=== PATIENT | female | born 1965 | race Caucasian/White ===

== ENCOUNTER 2018-07-25 13:06 | Emergency (ER) | payer OTHER ==
--- NOTE | 2018-07-25 14:10 | EDPHY ---
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 While driving this patient describes onset of substernal chest pain described as squeezing sensation associated with difficulty swallowing, anxiety and dyspnea. She reported associated neck and jaw discomfort in addition and reports that the symptoms lasted for approximately 30 min prior to resolving upon arrival here. She reports ongoing dyspnea that feels like she "can't quite get a full breath". She denies any other ongoing symptoms at this time. Currently no chest pain or jaw pain. She is accompanied by 2 friends 1 of whom drove her here by private vehicle for evaluation. She reports increased work stress recently but had no other significant antecedent symptoms prior to the onset of the discomfort. She does not recall having any similar episodes in the past. ROS: Constitutional: No fevers or chills recently no significant fatigue. HEENT: No URI symptoms recently. Pulmonary: No cough. Ongoing mild dyspnea that she has noticed over the past few days. She notices this at rest primarily. She has still been able tolerate significant exertion-skate skiing but felt a little more dyspneic than usual with this activity. GI: No GERD symptoms were noted prior to the onset of the chest discomfort. She denies any belly pain. Normal bowel movements. No nausea or vomiting. Endocrine: She denies any acute symptoms Neuro: No focal numbness tingling weakness. Psychiatric: She admits increased work stress recently in insomnia last night. 10 point review of symptoms is performed and otherwise negative with exception of pertinent positives and negatives listed in HPI and ROS Source: Patient Exam Limitations: No limitations - Personal History LMP (Females 10-55): Post Menopausal - Medical/Surgical History PMH: GERD-patient's impression is that this resolved after she stopped eating gluten. Hx Asthma: No Hx Chronic Respiratory Disease: No Hx Diabetes: No Hx Cardiac Disease: No Hx Renal Disease: No Hx Cirrhosis: No Hx Alcoholism: No Hx HIV/AIDS: No Hx Splenectomy or Spleen Trauma: No Other PMH: PMH: hyperthyroidism. PSH: tooth extraction 1 week ago - Family History Significant Family History: No pertinent family hx. No: Asthma, Heart disease, Vascular disease - Social History Smoking Status: Never smoked Alcohol Use: Occasionally (Patient is a social drinker. 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 Eyes: Pupils equal and round no pallor or injection. ENT, Mouth: Mucous membranes moist. Respiratory: There are no retractions, lungs are clear to auscultation. Cardiovascular: Regular rate and rhythm. No murmur gallop rub. No JVD or peripheral edema. No calf swelling or tenderness. Gastrointestinal: Abdomen is soft and nontender, no masses, bowel sounds normal. Neurological: GCS 15 Skin: Warm and dry, no rashes. Musculoskeletal: Neck is supple nontender. Extremities are symmetrical, full range of motion. Psychiatric: Anxious. Mood and affect are otherwise normal DIFFERENTIAL DIAGNOSIS: After history and physical exam differential diagnosis was considered for GERD with esophageal spasm, pulmonary embolism, pneumothorax , pneumonia, musculoskeletal pain, anxiety with somatization Constitutional: Initial Vital Signs Temperature (C) 37.1 C 07/25/18 13:16 Heart Rate 67 07/25/18 13:16 Respiratory Rate 18 07/25/18 13:16 Blood Pressure 122/69 H 07/25/18 13:16 O2 Sat (%) 100 07/25/18 13:16 O2 Delivery Mode Room Air Allergies/Adverse Reactions: No Known Allergies Allergy (Unverified 07/25/18 13:15) Home Medications: Medication Instructions Recorded Albuterol Hfa Anes Only [Proair 2 puffs IH Q4 PRN #1 mdi 07/25/18 Hfa Icu (*)] Fluticasone Hfa 220 Mcg [Flovent 2 puffs IH DAILY #1 mdi 07/25/18 220 MCG Hfa MDI (*)] Hyoscyamine Sulfate [Levsin, 0.125 - 0.25 mg SL Q6 PRN #20 tab 07/25/18 Hyomax-Sl 0.125 mg (*)] Pantoprazole Sodium [Protonix 40mg 40 mg PO DAILY #30 tab 07/25/18 (RX)] Medical Decision Making - Diagnostics EKG Interpretation: 12 lead EKG performed shortly after arrival at 1:18 p.m. Reveals sinus rhythm at 65 Intervals: Normal throughout [place]: Normal throughout ST segments: Normal throughout Overall assessment: Normal EKG Imaging Results: Two view chest x-ray: No focal infiltrates other significant abnormalities beyond mild bronchial prominence by my interpretation. Imaging: I viewed and interpreted images myself ED Course/Re-evaluation: IV, monitor, patient remained pain-free while here with sought some ongoing dyspnea and anxiety. She declined benzodiazepines for anxiety and initially declines treatment for potential GERD, but later accepted a dose of Maalox and Levsin after further conversation for potential GERD. Discussion: Patient presents with history of exercise-induced asthma and GERD with chest pain at rest that resolved prior to my evaluation with some ongoing dyspnea and a diminished peak flow of 400 with predicted of 470 or so. She has bronchial inflammation on chest x-ray. Potential etiology for symptoms could be GERD with no time aspiration and inflammatory bronchitis. However explained in some detail that we cannot entirely rule out cardiopulmonary cause of her symptoms and 1 visit. Her heart score is 2. She signed the heart score document declining a 6 hr troponin or admission understanding approximately 1% chance of significant cardiac disease causing symptoms despite are negative workup today and will undergo outpatient workup. At the time of discharge she is pain-free with plan to start Protonix, beta agonist inhaler and Flovent. She understands need to return emergency department should she develop any significant worsening symptoms despite treatment plan. - Data Points Medications Given: Discontinued Medications Al Hydroxide/Mg Hydroxide (Maalox Susp) 30 ml PO EDNOW ONE Stop: 07/25/18 14:54 Last Admin: 07/25/18 14:56 Dose: 30 ml Hyoscyamine Sulfate (Levsin, Hyomax-Sl) 0.125 mg PO EDNOW ONE Stop: 07/25/18 14:54 Last Admin: 07/25/18 14:56 Dose: 0.125 mg Levalbuterol (Xopenex 1.25mg Neb) 1.25 mg IH EDNOW ONE Stop: 07/25/18 15:09 Last Admin: 07/25/18 15:13 Dose: 1.25 mg Point of Care Test Results: CBC CBC Collection Date 07/25/18 CBC Collection Time 13:25 WBC 5.51 RBC 4.58 HGB 14.2 HCT 41.2 PLT 241 Neut # 2.84 Neut 51.5 LYMPH # 1.97 LYMPH 35.8 MCV 90.0 Chemistry 07/25/18 07/25/18 13:31 13:30 POC Sodium 141 mEq/L mEq/L (135-145) POC Potassium 3.9 mEq/L mEq/L (3.3-5.0) POC Chloride 106.0 mEq/L mEq/L (97-110) POC Total CO2 23 mEq/L mEq/L (22-31) POC BUN 19 mg/dL mg/dL (7-23) POC Creatinine 0.7 mg/dL mg/dL (0.6-1.0) POC Glucose 93 mg/dL mg/dL (70-100) POC Calcium 10.2 mg/dL mg/dL (8.5-10.4) POC Troponin I 0.00 ng/mL ng/mL (0.00-0.08) D-Dimer D-Dimer Collection Date 07/25/18 D-Dimer Collection Time 13:25 D-Dimer (ng/ml) 100 Departure - Departure Disposition: Home, Routine, Self-Care Clinical Impression: Chest pain, Dyspnea, GERD (gastroesophageal reflux disease), history of exercise induced asthma Condition: Good Instructions: Chest Pain (ED), Gastroesophageal Reflux Disease (ED) Additional Instructions: Diagnoses: 1. Chest pain 2. Dyspnea 3. History of exercise-induced asthma As we discussed the may be having some acid reflux causing some mild bronchial injury at night and/or a flare of your exercise-induced asthma causing your bronchial inflammation decreased peak flow. However we cannot entirely rule out a cardiac cause of chest pain 1 visit. Plan: Humidifier Flovent steroid inhaler Albuterol inhaler in addition if needed for cough wheeze or shortness of breath Protonix acid tom Use Maalox and Levsin in addition for acute symptoms if needed Follow up with primary care physician with Cardiology. Cardiology should contact you to facilitate close follow-up appointment. If not hear from them within the next 2 days, then call Dr. Junior saw office listed below to arrange follow-up appointment. Return emergency department for any significant worsening despite the treatment plan Referrals: Susan Martin MD [Primary Care Provider] - As per Instructions Jordi Pate MD [Medical Doctor] - As per Instructions Prescriptions: Albuterol Hfa Anes Only [Proair Hfa Icu (*)] 2 puffs IH Q4 PRN #1 mdi PRN Reason: Wheezing Fluticasone Hfa 220 Mcg [Flovent 220 MCG Hfa MDI (*)] 2 puffs IH DAILY #1 mdi Hyoscyamine Sulfate [Levsin, Hyomax-Sl 0.125 mg (*)] 0.125 - 0.25 mg SL Q6 PRN # 20 tab PRN Reason: abdominal cramping Pantoprazole Sodium [Protonix 40mg (RX)] 40 mg PO DAILY #30 tab
[2018-07-25] MEDS ORDERED: MAG HYDROX/AL HYDROX/SIMETH 30 ML UDCUP PO ONE (14:53)
[2018-07-25] MEDS ORDERED: HYOSCYAMINE SULFATE 0.125 MG TAB PO ONE (14:53)
[2018-07-25] MEDS ORDERED: LEVALBUTEROL 1.25 MG/3 ML DEYVIAL IH ONE (15:08)
[2018-07-25 15:57] VITALS: BP 121/74
--- NOTE | 2018-07-31 15:51 | CPEKG ---
Test Reason : OPEN Blood Pressure : / mmHG Vent. Rate : 065 BPM Atrial Rate : 065 BPM P-R Int : 183 ms QRS Dur : 101 ms QT Int : 414 ms P-R-T Axes : 079 039 052 degrees QTc Int : 431 ms Sinus rhythm Confirmed by Alen Turcios ([id number]) on 07/31/2018 3:51:21 PM Referred By: PHYSICIAN ED Confirmed By:Alen Turcios
== END 2018-07-25 15:35 | disposition home or self-care (01) ==
LOC: CED 13:06
DX: R07.9 Chest pain, unspecified (principal); R06.00 Dyspnea, unspecified; K21.9 Gastro-esophageal reflux disease without esophagitis; E03.9 Hypothyroidism, unspecified; Z87.09 Personal history of other diseases of the respiratory system
CPT/HCPCS: 71046-PO; 80048-ER; 84484-ER; 85025-QW-ER; 85379-QW-ER; 99285-ER